=== PATIENT | female | born 1990 | race Caucasian/White ===

== ENCOUNTER 2023-06-26 21:49 | Outpatient (CLI) | payer OTHER ==
[~2023-06-26] VITALS: Ht 160 cm; Wt 79.1 kg
[2023-06-26 22:30] VITALS: BP 118/62; PULSE 71; TEMP 97.8
[2023-06-26] MEDS ORDERED: LR 1,000 ML IV PRN (22:45)
[2023-06-26 23:00] VITALS: BP 106/58; PULSE 71
[2023-06-26 23:30] VITALS: BP 116/59; PULSE 77
--- NOTE | 2023-06-26 23:30 | NUR ---
pt siting upright in the bed at thist time, monitor traces ctx x2 but still unable to palpate ctx. Pt reports feeling better at this time as well.
== END 2023-06-26 23:47 | disposition home or self-care (01) ==
LOC: LDRO 21:49 → LDR 21:55 → LDRO 23:47
DX: O26.893 Other specified pregnancy related conditions, third trimester (principal); E75.5 Other lipid storage disorders; R10.2 Pelvic and perineal pain; M25.559 Pain in unspecified hip; Z3A.33 33 weeks gestation of pregnancy
CPT/HCPCS: OP